=== PATIENT | male | born 1970 | race Two or more races ===

== ENCOUNTER 2023-12-22 11:12 | Emergency (ER) | payer MEDICAID ==
[~2023-12-22] VITALS: Ht 185.4 cm; Wt 99.3 kg
[2023-12-22 13:22] LABS: Basophils # (auto) 0 10 ^3/uL (0-0.2); Basophils % (auto) 0.3 % (0.0-2.0); Eosinophils # (auto) 0.1 10 ^3/uL (0-0.8); Eosinophils % (auto) 1.2 % (0.0-7.0); Hematocrit 43.6 % (41.0-53.0); Lymphocytes # (auto) 2.7 10 ^3/uL (0.4-5.4); Lymphocytes % (auto) 33.7 % (10.0-50.0); Mean Corpuscular Hgb Conc. 34.4 g/dL (32.0-36.0); Mean Corpuscular Volume 92.9 fL (80.0-100.0); Monocytes # (auto) 0.9 10 ^3/uL (0-1.3); Monocytes % (auto) 11.3 % (0.0-12.0); Neutrophils # (auto) 4.3 10 ^3/uL (1.6-8.6); Neutrophils % (auto) 53.5 % (37.0-80.0); Nucleated Red Blood Cells % 0.1 %; Platelet Count (auto) 253 10^3/uL (140-450); Red Blood Cells 4.69 10^6/uL (4.5-5.90); Red Cell Distribution Width 13.4 % (11.8-14.3); White Blood Cell 8.1 10^3/uL (4.4-10.8)
[2023-12-22 13:44] LABS: Alanine Aminotransferase 32 U/L (7-40); Alkaline Phosphatase 108 U/L (46-116); Aspartate Aminotransferase 22 U/L (13-40)
[2023-12-22 13:45] LABS: Albumin 4.2 g/dL (3.2-4.8); Anion Gap 6 (5-15); BUN/Creatinine Ratio 18.1 (10.0-20.0); Bilirubin, Total 0.3 mg/dL (0.2-1.0); Blood Urea Nitrogen 19 mg/dL (9-23); Calcium 9.5 mg/dL (8.7-10.4); Carbon Dioxide 27 mmol/L (20-30); Chloride 108 mmol/L (98-107); Glucose 90 mg/dL (74-106); Potassium 4.2 mmol/L (3.5-5.1); Sodium 141 mmol/L (136-145); Total Protein 6.7 g/dL (5.7-8.2)
[2023-12-22] MEDS: diphenhdrAMINE HCL 25 MG CAP PO ONE (13:47)
[2023-12-22 13:52] VITALS: BP 127/73; PULSE 57; RESP 18; TEMP 98.7; O2SAT 97
[2023-12-22] MEDS ORDERED: DIPH-545 PO (15:17)
== END 2023-12-22 15:46 | disposition home or self-care (01) ==
LOC: ER 11:12
DX: L50.9 Urticaria, unspecified (principal); R06.02 Shortness of breath
CPT/HCPCS: 36415; 71045; 80053; 84484; 85025

== ENCOUNTER 2024-01-04 09:26 | Emergency (ER) | payer MEDICAID ==
[~2024-01-04] VITALS: Ht 185.4 cm; Wt 104.6 kg
[~2024-01-04 09:26] MED LIST: DIPH-545 PO
[2024-01-04 10:19] VITALS: BP 111/69; PULSE 66; RESP 16; TEMP 98.4; O2SAT 96
[2024-01-04] MEDS ORDERED: PRED20TA2 PO (10:39)
[2024-01-04] MEDS: diphenhdrAMINE HCL 50 MG/1 ML VL IM ONE (10:46)
[2024-01-04] MEDS: DexAMETHasone SOD PHOS 10MG/1ML VIAL INJ IM ONE (10:46)
== END 2024-01-04 10:47 | disposition home or self-care (01) ==
LOC: ER 09:26
DX: L50.9 Urticaria, unspecified (principal); I10 Essential (primary) hypertension; E78.5 Hyperlipidemia, unspecified; Z79.899 Other long term (current) drug therapy
CPT/HCPCS: 96372; 99284; J1100; J1200

== ENCOUNTER 2024-09-14 09:04 | Emergency (ER) | payer MEDICAID ==
[~2024-09-14] VITALS: Ht 180.3 cm; Wt 110.7 kg
[~2024-09-14 09:04] MED LIST changes: +PRED20TA2 PO
[2024-09-14 09:13] VITALS: TEMP 98.1
[2024-09-14 10:06] VITALS: BP 129/75; PULSE 67; RESP 18; O2SAT 97
--- NOTE | 2024-09-14 10:31 | ED.PDOC ---
Musculoskeletal HPI Comments 54 year old male presents to the ED for the c/c of Smashing His Left Big Toe. Pt states he was moving 500 pound pillars 2x days ago for work where one slipped and smashed his toe. Pt notes of 5/10 shooting pain at this time. Denies fever, SOB, chest pain, abdominal pain, nausea, vomiting, diarrhea, headache, dizziness, vision changes, or numbness/tingling of extremities. No other symptoms or modifying factors reported at this time. Patient is alert and oriented x4 and has a stable gait. Started 2x days ago Not able to bear weight Denies previous surgeries to the ankle Denies redness or swelling around the ankle Denies fever chills night sweats nausea vomiting Chief Complaint: Lower Extremity Time Seen by MD: 10:22 Primary Care Provider: ? Reviewed Notes: Nurses Notes, Medications, Allergies Allergies: Coded Allergies: NO KNOWN ALLERGIES (Unverified , 12/22/23) Home Meds Active Scripts Cephalexin Monohydrate (Cephalexin) 500 Mg Cap, 1 CAP PO QID for 5 Days, #20 CAP 0 Refills Prov:TJ HARDY GOVERNMENT AFFAIRS RESEARCHER 09/14/24 Prednisone (Prednisone) 20 Mg Tab, 40 MG PO DAILY for 5 Days, #10 TAB Prov:JULIOCESAR VILLATORO PAC 01/04/24 Diphenhydramine HCl (Benadryl Allergy Ultratab) 25 Mg Tab, 25 MG PO BID for 5 Days, #10 TAB Prov:FAUSTINA STEPHENS RESIDENT 12/22/23 Information Source: Patient Mode of Arrival: Ambulatory Location: Left Extremity Location: Great Toe, Nail/Nailbed Timing: Days Prehospital treatment: None Severity: Moderate Able to Move Extremity: Yes Bear Weight: Limited Pain: Moderate Hand Dominance: Right Mechanism: Crush Circumstances: Work Related Onset of Symptoms: After Trauma Symptoms: Swelling, Pain, Erythema DVT Risk Factors: NONE Associated signs and symptoms: None Past Medical History PAST MEDICAL HISTORY: High Lipids, HTN Surgical History: Denies all surgeries Family History Family History: Reviewed,noncontributory to illness Social History Smoker: Non-Smoker Alcohol: Denies ETOH Use Drugs: Denies Drug Use Lives In: Home Constitutional: denies: chills, diaphoresis, fatigue, fever, malaise, sweats, weakness, others EENTM: denies: blurred vision, double vision, ear bleeding, ear discharge, ear drainage, ear pain, ear ringing, eye pain, eye redness, hearing loss, mouth pain, mouth swelling, nasal discharge, nose bleeding, nose congestion, nose pain, photophobia, tearing, throat pain, throat swelling, voice changes, others Respiratory: denies: cough, hemoptysis, orthopnea, SOB at rest, shortness of breath, SOB with excertion, stridor, wheezing, others Cardiovascular: denies: chest pain, dizzy spells, diaphoresis, Dyspnea on exertion, edema, irregular heart beat, left arm pain, lightheadedness, palpitations, PND, syncope, others Gastrointestinal: denies: abdomen distended, abdominal pain, blood streaked bowels, constipated, diarrhea, dysphagia, difficulty swallowing, hematemesis, melena, nausea, poor appetite, poor fluid intake, rectal bleeding, rectal pain, vomiting, others Genitourinary: denies: burning, dysuria, flank pain, frequency, hematuria, incontinence, penile discharge, penile sore, pain, testicle pain, testicle swelling, urgency, others Neurological: denies: dizziness, fainting, headache, left sided numbness, left sided weakness, numbness, paresthesia, pre-existing deficit, right sided numbness, right sided weakness, seizure, speech problems, tingling, tremors, weakness, others Musculoskeletal: reports: others (Left great toe pain); denies: back pain, gout, joint pain, joint swelling, muscle pain, muscle stiffness, neck pain Integumetry: denies: bruises, change in color, change in hair/nails, dryness, laceration, lesions, lumps, rash, wounds, others Allergic/Immunocompromised: denies: Difficulty Healing, Frequent Infections, Hives, Itching, others Hematologic/Lymphatic: denies: anemia, blood clots, easy bleeding, easy brui sing, swollen glands, others Endocrine: denies: excessive hunger, excessive sweating, excessive thirst, ex cessive urination, flushing, intolerance to cold, intolerance to heat, unexplained weight gain, unexplained weight loss, others Psychiatric: denies: anxiety, bipolar disorder, depression, hopeless, panic disorder, schizophrenia, sleepless, suicidal, others All Other Systems: Reviewed and Negative Physical Exam General Appearance: No Apparent Distress, Normal, Obese HEENT: Normal ENT Inspection, TMs Normal Neck: Full Range of Motion, Non-Tender, Normal Respiratory: Chest Non-Tender, Lungs Clear, No Respiratory Distress, Normal Breath Sounds Cardiovascular: No Edema, No JVD, Normal Peripheral Pulses Breast Exam: Deferred Gastrointestinal: Non Tender, No Pulsatile Mass, Soft Genitalia: Deferred Pelvic: Deferred Rectal: Deferred Extremities: No calf tenderness, Normal range of motion, Non-tender, No pedal edema Musculoskeletal : Location: Left Extremity Location: Great Toe (abnormal thicking an yellowing of the great big toe consistant with onychomycosis, noticable nail avulsion to the great toe, no active bleeding, mild surrounding erythema around the nail bed, full ROM of the Great toe.) Apperance: Normal Neurologic: Alert, mechanical service representative II-XII nml as Tested, No Motor Deficits, Normal Affect, Normal Mood, No Sensory Deficits Cerebellar Function: Normal Reflexes: Normal Skin: Dry, Normal Color, Warm Lymphatic: No Adenopathy Was a procedure done? Was a procedure done?: No Differential Diagnosis EXT Differential Diagnosis: Cellulitis, Fracture, Sprain, Dislocation, Contusion X-Ray, Labs, Meds, VS Vital Signs Date Time Temp Pulse Resp B/P (MAP) Pulse Ox O2 Delivery O2 Flow Rate FiO2 09/14/24 10:06 67 18 97 Room Air 09/14/24 10:06 67 18 129/75 (93) 97 09/14/24 09:13 98.1 67 18 129/75 (93) 97 98.1 PATIENT: CURT CARLOS ACCT: [id number] UNIT: [id number] : 1970 LOC: ER ROOM / BED: / AGE / SEX: 54 / M ADM STATUS: REG ER SERVICE 09 ORDERING PHYSICIAN: TJ HARDY NP PROCEDURE(s): LFOOT - L FOOT 3 VIEW XRAY REASON: INJURY GREAT TOE ORDER NUMBER(s): [id number], ACCESSION NUMBER(s): [id number] CLINICAL INDICATION: INJURY GREAT TOE TECHNIQUE: XY L FOOT 3 VIEW XRAY Comparison: None FINDINGS/IMPRESSION: : There is no evidence of acute fracture or dislocation. Soft tissues are unremarkable. X-Ray, Labs, Meds, VS Comment 54 year old male presents to the ED for the c/c of Smashing His Left Big Toe. Patient arrives alert and oriented, ABC's intact, afebrile, vital signs stable, saturating well in room air Diagnostic imaging ordered by me and results interpreted by radiology : FINDINGS/IMPRESSION: : There is no evidence of acute fracture or dislocation. Soft tissues are unremarkable. Partial avulsion: Nail was gently lifted to inspect nail bed for laceration. No laceration. Nail wrapped with non-adherent, petroleum gauze into nail fold. Wound should be re-evaluated in 3-5 days and gauze replaced Additional MDM Review of External, Non-ED records: External records reviewed. Discussion with independent historian (EMS, family) history obtained from the patient/parents (if applicable) at bedside Chronic conditions affecting care: None Social determinants of health affecting care: None Consideration of admission (observation or admission): I considered escalation of care to admission for this patient, however given the reassuring workup, the patient is safe for outpatient management. Discussion with the Radiology: No Tests considered but not performed: Prescription medication considered but not given: Time of 1ST Reevaluation: 10:53 Reevaluation 1ST: Unchanged Patient Education/Counseling: Diagnosis, Treatment Family Education/Counseling: No Family Present Departure 1 Departure Time of Disposition: 11:49 Impression: Primary Impression: Nail avulsion of toe Qualified Codes: S91.209A - Unspecified open wound of unspecified toe(s) with damage to nail, initial encounter Disposition: HOME / SELF CARE / HOMELESS Condition: Stable e-Prescriptions Cephalexin Monohydrate (Cephalexin) 500 Mg Cap 1 CAP PO QID for 5 Days, #20 CAP 0 Refills Prov: TJ HARDY GOVERNMENT AFFAIRS RESEARCHER 09/14/24 Critical Care Note Critical Care Time?: No Stability Stability form required: No Heart Score Heart Score: Heart Score Response (Comments) Value History N/A 0 EKG N/A 0 Age N/A 0 Risk Factors N/A 0 Troponin N/A 0 Total 0 I personally scribed for TJ HARDY GOVERNMENT AFFAIRS RESEARCHER ([email or web address]) on 09/14/24 at 10:31. Electronically submitted by Yoandy Humphries ([email or web address]). I personally scribed for TJ HARDY NP ([email or web address]) on 09/14/24 at 11:47. Electronically submitted by Yoandy Humphries ([email or web address]). TJ HARDY NP Sep 14, 2024 10:31
--- NOTE | 2024-09-14 11:38 | DVH ---
CLINICAL INDICATION: INJURY GREAT TOE TECHNIQUE: XY L FOOT 3 VIEW XRAY Comparison: None FINDINGS/IMPRESSION: : There is no evidence of acute fracture or dislocation. Soft tissues are unremarkable.
[2024-09-14] MEDS ORDERED: CEPH500C PO (11:50)
== END 2024-09-14 11:53 | disposition home or self-care (01) ==
LOC: ER 09:04
DX: S91.202A Unspecified open wound of left great toe with damage to nail, initial encounter (principal); I10 Essential (primary) hypertension; E78.5 Hyperlipidemia, unspecified; Z79.52 Long term (current) use of systemic steroids; Z79.899 Other long term (current) drug therapy; W20.8XXA Other cause of strike by thrown, projected or falling object, initial encounter; Y93.89 Activity, other specified; Y92.89 Other specified places as the place of occurrence of the external cause; Y99.8 Other external cause status
CPT/HCPCS: 73630